=== PATIENT | male | born 1955 | race Caucasian/White ===

== ENCOUNTER 2017-04-03 05:39 | Day surgery (SDC) | payer BC ==
[2017-03-14 09:31] VITALS: BMI 35.0
[~2017-04-03] VITALS: Ht 170.2 cm; Wt 102.3 kg
[~2017-04-03 05:39] MED LIST: ASPI81TA28 PO; CLON0.5T3 PO; METO25TA3 PO; PRLSR20 PO; SUCR1TAB PO
[2017-04-03 06:00] VITALS: BP 151/91; PULSE 64; TEMP 36.8; O2SAT 95; Ht 170.2 cm; Wt 102.3 kg
[2017-04-03] MEDS ORDERED: LACTATED RINGER'S 1000ML 1,000 ML IV SCH ×2 (06:00)
[2017-04-03] MEDS ORDERED: CEFAZOLIN 2000 MG/60 ML D5W IV SCH (06:00)
[2017-04-03] MEDS ORDERED: DEXAMETHASONE SOD INJ 4 MG/ML VIAL ONE (06:39)
[2017-04-03] MEDS ORDERED: LIDOCAINE HCL 2% 2 ML VIAL (20MG/ML) ONE (06:39)
[2017-04-03] MEDS ORDERED: PROPOFOL IV EMULSION 10 MG/ML 20 ML VIAL IV ONE (06:39)
[2017-04-03] MEDS ORDERED: ONDANSETRON INJ 2 MG/ML 2 ML VIAL ONE (06:39)
[2017-04-03] MEDS ORDERED: FENTANYL CITRATE INJ 50 MCG/1 ML 2 ML VIAL ONE (06:40)
[2017-04-03] MEDS ORDERED: MIDAZOLAM HCL 1 MG/ML 2ML VIAL ONE (06:40)
[2017-04-03] MEDS ORDERED: BUPIVACAINE/EPINEPHRINE 0.5% MPF 1:200,000 10 ML VIAL ONE (06:55)
--- NOTE | 2017-04-03 07:00 | History and Physical ---
History & Physical Date Apr 03, 2017. Chief Complaint pt with umbilical hernia. slowly getting larger. occ discomfort History of Present Illness The patient is a 61 year old male with complaints of Additional History Hepatic Disease: No Endocrine Disorder: No Kidney Disease: No Hypertension: No Heart Disease: No Bleeding Tendencies: No Infectious Diseases: No Allergies Coded Allergies: No Known Allergies (Unverified , 04/03/17) Home Medications Scheduled Aspirin (Aspirin Ec), 81 MG PO QAM Clonazepam (Klonopin), 0.5 MG PO HS Metoprolol Succinate (Toprol Xl), 25 MG PO QPM Sucralfate (Sucralfate), 1 TAB PO TID Physical Examination Skin: warm/dry Eyes: normal inspection, EOMI Head: normocephalic Neck: supple Respiratory/Chest: no respiratory distress Cardiovascular: regular rate, rhythm Abdomen / GI: normal bowel sounds, + pertinent finding (small umbilical hernia. reducible) Neurologic/Psych: alert, oriented x 3 Diagnosis umbilical hernia discussed repair possibly with mesh pending defect size discussed risks ( bleeding/infection/dvt/pe/infection of mesh etc...) questions answered. will proceed with open repair.
[2017-04-03] MEDS ORDERED: KETOROLAC TROMETHAMINE 30 MG/ML VIAL ONE (07:43)
[2017-04-03] MEDS ORDERED: SODIUM CHLORIDE 0.9% 1000ML 1,000 ML IV SCH (07:59)
[2017-04-03] MEDS ORDERED: HYDROCODONE/ACETAMOPHEN 5/325MG TAB PO PRN ×2 (08:00)
[2017-04-03] MEDS ORDERED: ONDANSETRON INJ 2 MG/ML 2 ML VIAL IV PRN ×2 (08:00→08:15)
[2017-04-03] MEDS ORDERED: HYDR-5688 PO (08:01)
--- NOTE | 2017-04-03 08:03 | Discharge Instructions ---
Discharge Instructions Date of Service Apr 03, 2017. Admission Reason for Admission: Umbilical Hernia Repair Discharge Discharge Diagnosis / Problem: Umbilical Hernia Repair Discharge Goals Goal(s): Decrease discomfort, Improve function Activity Recommendations Activity Limitations: as noted below Lifting Limitations: no more than 10 pounds Exercise/Sports Limitations: until after follow-up appointment May Resume Sexual Activity: after follow-up appointment Shower/Bathe: tomorrow . Instructions / Follow-Up Instructions / Follow-Up Please follow-up with Dr. Neville in the office in 1-2 weeks. Please call the office at [phone] to make an appointment if you do not have one already. Please call the office at [phone] with any questions or concerns. Current Hospital Diet Patient's current hospital diet: Discharge Diet Recommended Diet: Regular Diet Procedures Procedures Performed: Open Umbilical Hernia Repair Pending Studies Studies pending at discharge: no Medical Emergencies . Who to Call and When: Medical Emergencies: If at any time you feel your situation is an emergency, please call 911 immediately. . Non-Emergent Contact Non-Emergency issues call your: Primary Care Provider, Surgeon Call Non-Emergent contact if: temperature is above 101.5, your pain is not controlled, wound has increased drainage, wound has increased redness . "Provider Documentation" section prepared by Katina Perez. . VTE Core Measure Inpt VTE Proph given/why not?: SCD's [place] Drug Monitoring Program Search Results: patient reviewed within database, no issues identified
--- NOTE | 2017-04-03 08:05 | Medical Student: [facility] ---
Immediate Operative Summary Operative Date Apr 03, 2017. Pre-Operative Diagnosis Umbilical hernia Post-Operative Diagnosis same Procedure(s) Performed Open umbilical hernia repair Surgeon Dr. Neville Maintenance Journeyman Surgeon(s) Katina Perez Estimated Blood Loss 5cc Findings Umbilical hernia without bowel Specimens None Drains None Anesthesia General Complication(s) None Disposition Recovery Room / PACU
--- NOTE | 2017-04-03 08:12 | [facility] Operative Report ---
Operative Report Operative Date Apr 03, 2017. Pre-Operative Diagnosis Umbilical Hernia Post-Operative Diagnosis Same as preop Procedure(s) Performed Open Umbilical Hernia Repair Surgeon Dr. Neville Skinning Machine Feeder Surgeon(s) Katina Buck PA-C Estimated Blood Loss 5 ml Findings small 1 cm umbilical hernia Specimens A. Umbilical Hernia Anesthesia LMA Complication(s) None Disposition Recovery Room / PACU Description of Procedure After informed consent was obtained the patient was taken the operative suite and placed in supine position. After successful placement of the laryngeal mask airway the abdominal area was shaved and sterilely prepped and draped in usual fashion. A curvilinear infraumbilical incision was made with a 15 blade scalpel and carried down through the soft tissue using electrocautery. Once down to the fascia I used a Brianna to come around the umbilicus superiorly. We used electrocautery to take down the umbilical stalk. This revealed a small approx 1-1.5 cm hernia defect. There was a small amount of preperitoneal fat incarcerated within it. I remove this fat using electrocautery. Because of the size of the defect I opted not to use mesh. I used a an 0 Ethibond in interrupted [id number] fashion to primarily close the defect. We then thoroughly irrigated the wound. There was adequate hemostasis. The umbilicus was attached back to the fascia using 0 Vicryl in interrupted fashion. Soft tissue was closed using 3-0 Vicryl and skin was closed using 4-0 Monocryl. Marcaine was injected around the area for postoperative analgesia and skin glue used as a dressing the patient was awaken extubated and transferred recovery in stable condition I attest to the content of the Intraoperative Record and any orders documented therein. Any exceptions are noted below.
[2017-04-03] MEDS ORDERED: KETOROLAC TROMETHAMINE 30 MG/ML VIAL IV. PRN (08:15)
[2017-04-03] MEDS ORDERED: LABETALOL HCL IV 5 MG/ML 20ML IV PRN (08:15)
[2017-04-03] MEDS ORDERED: FENTANYL CITRATE INJ 50 MCG/1 ML 2 ML VIAL IV PRN (08:15)
[2017-04-03] MEDS ORDERED: ATROPINE SULFATE 0.1 MG/ML 5ML SYR IV PRN (08:15)
--- NOTE | 2017-04-03 09:11 | Anesthesiology Progress Note ---
Anesthesia Post Op Note Date & Time Apr 03, 2017 at 09:11 Vital Signs Pain Intensity: 2 Vital Signs Past 12 Hours Date Time Temp Pulse Resp B/P (MAP) Pulse Ox O2 Delivery O2 Flow Rate FiO2 04/03/17 08:45 36.9 60 18 131/80 92 Room Air 04/03/17 08:36 129/82 04/03/17 08:35 36.3 61 12 129/82 94 Room Air 04/03/17 08:32 62 12 04/03/17 08:32 63 12 92 04/03/17 08:31 131/78 04/03/17 08:28 64 17 04/03/17 08:28 76 17 92 04/03/17 08:27 64 17 94 04/03/17 08:27 65 17 04/03/17 08:26 128/83 04/03/17 08:22 67 18 04/03/17 08:22 67 18 93 04/03/17 08:21 123/75 04/03/17 08:17 64 16 04/03/17 08:17 63 16 99 04/03/17 08:16 129/86 04/03/17 08:12 67 14 98 04/03/17 08:12 66 14 04/03/17 08:11 127/96 04/03/17 08:08 63 16 98 04/03/17 08:08 63 16 04/03/17 08:07 127/83 04/03/17 08:03 66 15 99 04/03/17 08:03 66 15 04/03/17 08:01 149/94 04/03/17 07:59 142/90 04/03/17 07:58 36.4 76 16 142/90 97 Mask 10 04/03/17 07:58 74 17 99 04/03/17 07:58 73 17 04/03/17 06:00 36.8 64 18 151/91 (111) 95 Room Air Notes Mental Status: alert / awake / arousable, participated in evaluation Pt Amnestic to Procedure: Yes Nausea / Vomiting: adequately controlled Pain: adequately controlled Airway Patency, RR, SpO2: stable & adequate BP & HR: stable & adequate Hydration State: stable & adequate Anesthetic Complications: no major complications apparent
[2017-04-03 09:30] VITALS: BP 147/83; PULSE 62; TEMP 36.7; O2SAT 95
== END 2017-04-03 09:30 | disposition home or self-care (01) ==
LOC: C.ACU 05:39
PROVIDERS: ATTEND Surgery
DX: K42.9 Umbilical hernia without obstruction or gangrene (principal); Z79.82 Long term (current) use of aspirin; Z79.899 Other long term (current) drug therapy

== ENCOUNTER → 2017-04-14 | Outpatient (CLI) | payer BC ==
[~2017-04-14] MED LIST changes: -PRLSR20 PO
[2017-04-14 12:32] LABS: BASO % 0.6 %; BASO ABS # 0.03 K/uL (0-0.2); COMPLETE YES; HEMATOCRIT 39.7 % (42-52); LYMPH % 16.2 %; LYMPH ABS # 0.75 K/uL (1.2-3.4); MEAN CELL VOLUME 87.1 fL (80-100); MEAN CORPUSCULAR HEMOGLOBIN 29.2 pg (25-34); MEAN CORPUSCULAR HGB CONC 33.5 g/dl (32-36); MEAN PLATELET VOLUME 9.2 fL (7.4-10.4); MONO % 18.5 %; NEUT % 58.7 %; PLATELET COUNT 250 K/uL (130-400); RED BLOOD COUNT 4.56 M/uL (4.7-6.1); WHITE BLOOD COUNT 4.64 K/uL (4.8-10.8)
== END | disposition home or self-care (01) ==
LOC: C.LAB 10:54
PROVIDERS: ATTEND Surgery
DX: K42.9 Umbilical hernia without obstruction or gangrene (principal); R50.9 Fever, unspecified